=== PATIENT | female | born 1985 | race Caucasian/White ===

== ENCOUNTER 2019-02-05 10:11 | Emergency (ER) | payer OTHER, SELFPAY ==
[2019-02-05 10:18] VITALS: BP 127/85; PULSE 68; RESP 16; TEMP 36.4; O2SAT 98
--- NOTE | 2019-02-05 10:28 | DI.RAD_ITS ---
EXAM: XR SHOULDER LT COMPLETE 2+V INDICATION: mid clavicle pain and swell. COMPARISON: No exams were available for comparison TECHNIQUE: 2D digital imaging was performed. FINDINGS: Three views were obtained. There is a midclavicular fracture. No evidence acute glenohumeral disloc ation or fracture. Apparent prior resection of distal left clavicle noted. IMPRESSION:
--- NOTE | 2019-02-05 10:28 | DI.RAD_ITS ---
EXAM: XR RIBS LT W PA LAT CHEST INDICATION: fall< l shoulder pain, L pain. COMPARISON: No exams were available for comparison TECHNIQUE: 2D digital imaging was performed. FINDINGS: PA and lateral chest and four views of left ribs were obtained. Heart is not enlarged and the lungs are clear. No pneumothorax or pleural effusion. No rib fracture seen. Left clavicular fracture aga in noted. IMPRESSION:
--- NOTE | 2019-02-05 10:28 | DI.RAD_ITS ---
EXAM: XR CERVICAL SP TUTTLE TRAUMA 2-3V INDICATION: L anterior neck pain after fall. COMPARISON: No exams were available for comparison TECHNIQUE: 2D digital imaging was performed. FINDINGS: Five views were obtained. Intervertebral disc spaces appear well maintained. No evidence of acute c ervical spine fracture. IMPRESSION:
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
[2019-02-05] MEDS: Ibuprofen 400 MG TAB 800 MG (10:39)
--- NOTE | 2019-02-05 11:14 | DI.RAD_ITS ---
EXAM: XR CLAVICLE LT INDICATION: pain. COMPARISON: No exams were available for comparison TECHNIQUE: 2D digital imaging was performed. FINDINGS: Two views were obtained and show inferiorly angulated distal fracture fragment with midclavicular fra cture. Question prior resection distal left clavicle. No other acute fracture seen IMPRESSION:
[2019-02-05] MEDS: Acetaminophen 500 MG TAB 1000 MG PO (11:23)
[2019-02-05 12:06] VITALS: BP 120/79; PULSE 67; RESP 14; TEMP 37; O2SAT 100
== END 2019-02-05 12:09 | disposition home or self-care (01) ==
PROVIDERS: Emergency Provider Emergency Medicine; PCP Student in an Organized Health Care Education/Training Program
DX: S42.022A Displaced fracture of shaft of left clavicle, initial encounter for closed fracture (principal); M54.2 Cervicalgia; V17.0XXA Pedal cycle driver injured in collision with fixed or stationary object in nontraffic accident, initial encounter
CPT/HCPCS: 99284; 71046; 71100; 72040; 73000; 73030; 99282; L3650

== ENCOUNTER 2019-02-18 10:13 | Outpatient (CLI) | payer OTHER, SELFPAY ==
--- NOTE | 2019-02-18 09:26 | DI.RAD_ITS ---
EXAM: XR CLAVICLE LT INDICATION: F/U FRACTURE COMPARISON: XR CLAVICLE LT from 02/05/2019 TECHNIQUE: 2D digital imaging was performed. FINDINGS: There has been no change in the alignment of the mid clavicular fracture.
== END 2019-02-18 10:33 ==
PROVIDERS: PCP Student in an Organized Health Care Education/Training Program; Visit Provider Student in an Organized Health Care Education/Training Program
DX: S42.022D Displaced fracture of shaft of left clavicle, subsequent encounter for fracture with routine healing (principal)
CPT/HCPCS: 73000

== ENCOUNTER 2019-03-10 13:37 | Outpatient (CLI) | payer OTHER, SELFPAY ==
--- NOTE | 2019-03-10 13:37 | DI.RAD_ITS ---
EXAM: XR CLAVICLE LT INDICATION: F/U FRACTURE. COMPARISON: XR SHOULDER LT COMPLETE 2+V from 02/05/2019 XR CLAVICLE LT from 02/05/2019 XR CLAVICLE LT from 02/18/2019 TECHNIQUE: 2D digital imaging was performed. FINDINGS: Fracture of the proximal 3rd appears unchanged in alignment given differences in projection. There is widening of the AC joint versus postsurgical resection.
== END 2019-03-10 13:57 ==
PROVIDERS: PCP Student in an Organized Health Care Education/Training Program; Visit Provider Student in an Organized Health Care Education/Training Program
DX: S42.022D Displaced fracture of shaft of left clavicle, subsequent encounter for fracture with routine healing (principal)
CPT/HCPCS: 73000

== ENCOUNTER 2019-03-31 13:36 | Outpatient (CLI) | payer OTHER, SELFPAY ==
--- NOTE | 2019-03-31 13:09 | DI.RAD_ITS ---
EXAM: XR CLAVICLE LT INDICATION: F/U FRACTURE. COMPARISON: No exams were available for comparison TECHNIQUE: 2D digital imaging was performed. FINDINGS: There has been no change in the alignment of the mid clavicle fracture given differences in projectio n.
== END 2019-03-31 13:56 ==
PROVIDERS: PCP Student in an Organized Health Care Education/Training Program; Visit Provider Student in an Organized Health Care Education/Training Program
DX: S42.022D Displaced fracture of shaft of left clavicle, subsequent encounter for fracture with routine healing (principal)
CPT/HCPCS: 73000

== ENCOUNTER 2020-11-15 14:54 | Outpatient (CLI) | payer OTHER, SELFPAY ==
[2020-11-15 14:44] LABS: TSH (W/Ref FT4) 0.09 uIU/mL (0.36-3.74)
[2020-11-16 20:35] LABS: HCG Quant, Pregnancy 1495 mIU/mL (1-3)
== END 2020-11-15 14:55 | disposition home or self-care (01) ==
LOC: LBO 14:54
PROVIDERS: PCP Student in an Organized Health Care Education/Training Program; Visit Provider Obstetrics & Gynecology
DX: E03.9 Hypothyroidism, unspecified (principal); Z32.01 Encounter for pregnancy test, result positive; R53.83 Other fatigue
CPT/HCPCS: 36415; 84439; 84443; 84702

== ENCOUNTER 2020-11-17 03:41 | Outpatient (CLI) | payer OTHER, SELFPAY | END 2020-11-17 03:42 | disposition home or self-care (01) | LOC: LBO 03:41 | PROVIDERS: PCP Student in an Organized Health Care Education/Training Program; Visit Provider Obstetrics & Gynecology | DX: Z34.91 Encounter for supervision of normal pregnancy, unspecified, first trimester (principal) | CPT/HCPCS: 36415; 84702 ==

== ENCOUNTER → 2021-05-18 01:59 | Outpatient (CLI) | payer OTHER, SELFPAY ==
--- NOTE | 2021-05-18 08:30 | DI.MAMMO_ITS ---
Exam(s) US BREAST LT COMPLETE MG MAMMO DIAGNOSTIC BI EXAM: MG MAMMO DIAGNOSTIC BI CLINICAL HISTORY: breast pain, n64.4. COMPARISON: MG Mammo Diagnostic Bilat from 07/01/2017 US RIGHT BREAST ULTRASOUND from 07/01/2017 [id number] TECHNIQUE: Craniocaudal and mediolateral oblique Full Field Digital Mammography views of the both br easts with Computer Aided Diagnosis followed by Tomosynthesis and left breast ultrasound. FINDINGS: Mammography/Tomosynthesis: Masses/Architectural Distortion: None seen. Microcalcifications: No suspicious pleomorphic-type are seen. Skin Thickening/Nipple Retraction: None. Left breast US: Echotexture: Normal appearance of the glandular tissue. Shadowing: No suspicious foci. Cyst: None. Solid lesions: None seen. Ductal dilation: None. IMPRESSION: 1. No evidence of malignancy is noted. 2. Unless there is more urgent need, follow-up screening mammography is recommended, as per [place] [employer] guidelines. BI-RADS Category 1 - Negative Breast Density - Category C - Heterogeneously dense Breast density category C or D implies that the patient has dense breast tissue. Dense breast tissue is very common and is not abnormal but dense breast tissue can make it harder to find cancer on a ma mmogram. Also, dense breast tissue may increase their breast cancer risk. This information about the result of the mammogram report was provided to the patient to raise their awareness. Use this report when you speak with the patient about their risks for breast cancer, which includes their family hist ory. At that time, you may recommend for more screening tests (Ultrasound or MRI) as they might be us eful based on their risk. A negative radiographic report should not delay biopsy if a dominant or clinically suspicious mass is present. Up to ten percent of cancers are not identified on mammography. A negative report may reinforce clinical impression. Adenosis and dense breasts may obscure an underlying neoplasm. False positive reports average 6 to 10%. Patient will receive a letter notifying them of these results.
== END ==
PROVIDERS: PCP Student in an Organized Health Care Education/Training Program; Visit Provider Student in an Organized Health Care Education/Training Program
DX: N64.4 Mastodynia (principal)
CPT/HCPCS: 76642; 77062; 77066; G0279

== ENCOUNTER 2021-12-25 04:04 | Outpatient (CLI) | payer OTHER, SELFPAY ==
[2021-12-25 14:16] LABS: Anion Gap 7.1 mmol/L (3-11); BUN 14 mg/dL (7-18); CO2 30.9 mmol/L (21.0-32.0); CREATININE 0.8 mg/dL (0.55-1.02); Calcium 8.4 mg/dL (8.5-10.1); Chloride 102 mmol/L (98-107); Glucose 87 mg/dL (74-106); Potassium 4.1 mmol/L (3.5-5.1); Sodium 140 mmol/L (136-145); TSH (W/Ref FT4) 0.06 uIU/mL (0.36-3.74)
[2021-12-25 14:34] LABS: FREE T4 1.08 ng/dL (0.76-1.46)
[2021-12-25 14:49] LABS: Calculated LDL 82 mg/dL (<100); Cholesterol 177 mg/dL (<200); HDL Cholesterol 83 mg/dL (40-60); Triglyceride 60 mg/dL (<150)
[2021-12-26 12:23] LABS: Thyroglobulin Antibody <1.8 IU/mL (<1.8); Thyroglobulin Tumor Marker <0.1 ng/mL
== END 2021-12-25 04:05 | disposition home or self-care (01) ==
LOC: LBO 04:04
PROVIDERS: PCP Student in an Organized Health Care Education/Training Program; Visit Provider Internal Medicine Endocrinology, Diabetes & Metabolism
DX: R79.89 Other specified abnormal findings of blood chemistry (principal); Z13.220 Encounter for screening for lipoid disorders; E03.9 Hypothyroidism, unspecified; C73 Malignant neoplasm of thyroid gland
CPT/HCPCS: 36415; 80048; 80061; 84432; 84439; 84443; 86800

== ENCOUNTER → 2022-02-19 00:56 | Outpatient (CLI) | payer MEDICAID, SELFPAY ==
--- NOTE | 2022-02-19 06:30 | DI.US_ITS ---
Exam(s) US SOFT TISSUE HEAD OR NECK EXAM: US SOFT TISSUE HEAD OR NECK CLINICAL HISTORY: re-evaluate enlarged lymph node M54.2 CERVICALGIA R59.0 ENLARGED LYMPH NODE. TECHNIQUE: Ultrasound was performed using standard protocol. COMPARISON: US US SOFT TISSUE HEAD OR NECK from 12/15/2021 FINDINGS: Sonographic assessment utilizing grayscale and color Doppler imaging was performed and targeted to th e area of clinical concern. The patient is status post thyroidectomy. Lymph nodes are again seen in the neck. The largest on th e right measures 1 x 0.8 x 0.2 cm. The largest on the left measures 1.2 x 0.9 x 0.6 cm. Previously the largest lymph node in the left neck measures 1.7 x 0.9 x 1.2 cm. IMPRESSION: The largest lymph node is seen in the left neck and measures 1.2 x 0.9 x 0.6 cm. DATA REPOSITORY:
== END ==
PROVIDERS: PCP Student in an Organized Health Care Education/Training Program; Visit Provider Student in an Organized Health Care Education/Training Program
DX: M54.2 Cervicalgia (principal); R59.0 Localized enlarged lymph nodes
CPT/HCPCS: 76536

== ENCOUNTER 2022-06-01 00:49 | Outpatient (CLI) | payer MEDICAID, SELFPAY ==
--- NOTE | 2022-06-01 06:30 | DI.RAD_ITS ---
Exam(s) XR CERVICAL SPINE COMP 4-5V EXAM: XR CERVICAL SPINE COMP 4-5V CLINICAL HISTORY: evaluate curvature; mm tension;? BONY PATHOL,NECK PAIN,M54.2,H/O HEALED FX,. TECHNIQUE: 2D digital imaging was performed. Six images were obtained. AP, odontoid, lateral and ez ateral oblique images were obtained. COMPARISON: No exams were available for comparison FINDINGS: The odontoid is intact. The lateral masses are well aligned. There is normal alignment of the cervi sonny spine. The vertebral bodies, disc spaces and posterior elements are well maintained. No acute f racture or subluxation is present. No significant neural foraminal stenosis is present. The cervical thoracic junction is well maintained. The prevertebral soft tissues are unremarkable. Lung apices a re clear. IMPRESSION: Unremarkable radiographs of the cervical spine. DATA REPOSITORY: RADIATION DOSE DELIVERED:
== END 2022-06-01 01:09 ==
LOC: DI 00:49
PROVIDERS: PCP Student in an Organized Health Care Education/Training Program; Visit Provider Student in an Organized Health Care Education/Training Program
DX: M54.2 Cervicalgia (principal); Z87.81 Personal history of (healed) traumatic fracture
CPT/HCPCS: 72050

== ENCOUNTER 2022-09-24 01:08 | Outpatient (CLI) | payer MEDICAID, SELFPAY ==
--- NOTE | 2022-09-24 06:30 | DI.US_ITS ---
Exam(s) US THYROID EXAM: US THYROID CLINICAL HISTORY: monitor lymphadenopathy,hypothyroidism,r59.0,e03.9. TECHNIQUE: Ultrasound thyroid performed using standard protocol. COMPARISON: No exams were available for comparison FINDINGS: The patient is status post thyroidectomy. OTHER FINDINGS: There are lymph nodes seen in the neck. The lymph nodes have a benign appearance wit h un ovoid hypoechoic node with an echogenic eccentric hilum. The largest on the right measures 1.4 x 0.6 x 1.1 cm. The largest on the left measures 1.8 x 0.7 x 1.4 cm. IMPRESSION: 1. Status post thyroidectomy. 2. Bilateral lymph nodes. The largest is on the left and measures 1.8 x 0.7 x 1.4 cm. DATA REPOSITORY:
== END 2022-09-24 01:28 ==
LOC: DI 01:08
PROVIDERS: PCP Student in an Organized Health Care Education/Training Program; Visit Provider Student in an Organized Health Care Education/Training Program
DX: E03.9 Hypothyroidism, unspecified (principal); R59.0 Localized enlarged lymph nodes
CPT/HCPCS: 76536

== ENCOUNTER 2022-09-27 12:19 | Outpatient (CLI) | payer MEDICAID, SELFPAY ==
[2022-09-27 10:57] LABS: Lab Add On Test DONE
[2022-09-27 11:07] LABS: Abs Immature Grans 0.02 10^3/uL (0.0-0.06); Absolute Basophil Count 0.03 10^3/uL (0.0-0.2); Absolute Eosinophil Count 0.15 10^3/uL (0.0-0.7); Absolute Lymphocyte Count 1.65 10^3/uL (1.2-3.4); Absolute Neutrophil Count 3.39 10^3/uL (1.2-6.7); Basophils % 0.5; Eosinophils % 2.6; HCT 40.9 % (36.0-46.0); Immature Grans % 0.3; Lymphocytes % 28.7; MCH 32.3 pg (27.0-33.0); MCHC 34.2 % (32.0-36.0); MCV 94 fL (80-95); MPV 9.3 fL (8.0-11.0); Monocytes % 8.7; Neutrophils % 59.2; Platelet Count 252 10^3/uL (130-400); RBC 4.34 10^6/uL (3.93-5.22); RDW 11.8 % (11.7-14.6); RDW-SD 41.1 fL; WBC 5.74 10^3/uL (4.4-10.8)
[2022-09-27 11:35] LABS: Anion Gap 7.1 mmol/L (3-11); BUN 9 mg/dL (7-18); CO2 28.9 mmol/L (21.0-32.0); CREATININE 0.7 mg/dL (0.55-1.02); Calcium 8.6 mg/dL (8.5-10.1); Chloride 102 mmol/L (98-107); Estimated GFR 114.88 (mL/min/1.73m2); Glucose 100 mg/dL (74-106); Potassium 4.3 mmol/L (3.5-5.1); Sodium 138 mmol/L (136-145); TSH (W/Ref FT4) 0.08 uIU/mL (0.36-3.74)
[2022-09-27 11:58] LABS: FREE T4 1.15 ng/dL (0.76-1.46)
[2022-09-27 19:29] LABS: T3,Free 3.7 pg/mL (2.8-5.3)
[2022-09-27 20:42] LABS: Thyroglobulin Antibody <15 U/mL (<=60)
[2022-09-28 16:41] LABS: Thyroglobulin Antibody <1.8 IU/mL (<1.8); Thyroglobulin Tumor Marker <0.1 ng/mL
[2022-10-01 15:57] LABS: Albumin 4.7 g/dL (3.4-5.0); Magnesium 2.3 mg/dL (1.8-2.4)
== END 2022-09-27 12:20 | disposition home or self-care (01) ==
LOC: LBO 12:20
PROVIDERS: PCP Student in an Organized Health Care Education/Training Program; Visit Provider Student in an Organized Health Care Education/Training Program
DX: K12.2 Cellulitis and abscess of mouth (principal); R59.1 Generalized enlarged lymph nodes; Z85.850 Personal history of malignant neoplasm of thyroid
CPT/HCPCS: 36415; 80048; 82040; 83735; 84432; 84439; 84443; 84481; 85025; 86800

== ENCOUNTER 2023-01-01 11:49 | Outpatient (REF) | payer MEDICAID, SELFPAY ==
--- NOTE | 2023-01-01 11:15 | PAPFT_PTH ---
PATIENT: Marlyn Bradley LOC: [facility] U#:[id number] AGE/SX: 37/F ROOM: RE01/01/[address]: Diana Jones CNM : 1985 BED: DIS: 01/01/2023 SPEC #: [id number] RECD: 01/01/23 18:27 STATUS: ERYN REQ #: [id number] TREY: 01/01/23 11:[address]: Diana Jones DEPT: [facility] Cytology RECD BY: Maria Esther Streeter ENTERED: 01/01/23 18:27 SP TYPE: PAPFT OTHR DR: Batsheva Mederos DO Tissues: 1 - CX/ENDOCX FOR PAP SMEARS Procedures: PAP THIN PREP/[facility] Screening Comments: [id number]
== END 2023-01-01 11:50 | disposition home or self-care (01) ==
LOC: LBN 11:49
PROVIDERS: PCP Student in an Organized Health Care Education/Training Program; Visit Provider Advanced Practice Midwife
DX: Z12.4 Encounter for screening for malignant neoplasm of cervix (principal)
CPT/HCPCS: 88142

== ENCOUNTER 2023-01-01 14:41 | Outpatient (CLI) | payer MEDICAID, SELFPAY ==
[2023-01-01 12:12] LABS: HCG Quant, Pregnancy 63 mIU/mL (1-3); TSH 0.09 uIU/mL (0.36-3.74)
[2023-01-01 12:32] LABS: FREE T4 1.02 ng/dL (0.76-1.46)
== END 2023-01-01 14:42 | disposition home or self-care (01) ==
LOC: LBO 14:42
PROVIDERS: PCP Student in an Organized Health Care Education/Training Program; Visit Provider Advanced Practice Midwife
DX: O03.9 Complete or unspecified spontaneous abortion without complication (principal); E03.8 Other specified hypothyroidism
CPT/HCPCS: 36415; 84439; 84443; 84702

== ENCOUNTER 2023-01-08 02:31 | Outpatient (CLI) | payer MEDICAID, SELFPAY ==
[2023-01-08 14:40] LABS: HCG Quant, Pregnancy 4 mIU/mL (1-3)
== END 2023-01-08 02:32 | disposition home or self-care (01) ==
LOC: LBO 02:31
PROVIDERS: Advanced Practice Midwife; PCP Student in an Organized Health Care Education/Training Program; Visit Provider Student in an Organized Health Care Education/Training Program
DX: O03.9 Complete or unspecified spontaneous abortion without complication (principal)
CPT/HCPCS: 36415; 84702

== ENCOUNTER 2023-02-12 03:18 | Outpatient (CLI) | payer MEDICAID, SELFPAY ==
[2023-02-12 13:49] LABS: FREE T4 1.11 ng/dL (0.76-1.46)
== END 2023-02-12 03:19 | disposition home or self-care (01) ==
PROVIDERS: PCP Student in an Organized Health Care Education/Training Program; Visit Provider Internal Medicine Endocrinology, Diabetes & Metabolism
DX: E03.9 Hypothyroidism, unspecified (principal)
CPT/HCPCS: 36415; 84439; 84443

== ENCOUNTER 2023-10-10 05:20 | Outpatient (CLI) | payer MEDICAID, SELFPAY ==
[2023-10-10 16:13] LABS: Abs Immature Grans 0.02 10^3/uL (0.0-0.06); Absolute Basophil Count 0.04 10^3/uL (0.0-0.2); Absolute Eosinophil Count 0.31 10^3/uL (0.0-0.7); Absolute Monocyte Count 0.49 10^3/uL (0.1-0.8); Absolute Neutrophil Count 2.64 10^3/uL (1.2-6.7); Basophils % 0.7 %; Eosinophils % 5.4 %; HCT 37.4 % (36.0-46.0); HGB 12.9 g/dL (11.2-15.7); Immature Grans % 0.4 %; Lymphocytes % 38.6 %; MCH 32.5 pg (27.0-33.0); MCHC 34.5 % (32.0-36.0); MCV 94 fL (80-95); MPV 9.7 fL (8.0-11.0); Monocytes % 8.6 %; Neutrophils % 46.3 %; Platelet Count 229 10^3/uL (130-400); RBC 3.97 10^6/uL (3.93-5.22); RDW 11.7 % (11.7-14.6)
== END 2023-10-10 05:21 | disposition home or self-care (01) ==
LOC: LBO 05:20
PROVIDERS: PCP Student in an Organized Health Care Education/Training Program; Visit Provider Student in an Organized Health Care Education/Training Program
DX: R53.83 Other fatigue (principal)
CPT/HCPCS: 36415; 85025

== ENCOUNTER → 2023-10-17 00:14 | Outpatient (CLI) | payer MEDICAID, SELFPAY ==
--- NOTE | 2023-10-17 12:00 | DI.US_ITS ---
Exam(s) US SOFT TISSUE HEAD OR NECK EXAM: US SOFT TISSUE HEAD OR NECK CLINICAL HISTORY: r/o acute finding, hypothyroidism, globus sensation, hx thyroid ca, R09.A2,. TECHNIQUE: Ultrasound was performed using standard protocol. COMPARISON: US US SOFT TISSUE HEAD OR NECK from 02/19/2022 FINDINGS: Sonographic assessment utilizing grayscale and color Doppler imaging was performed and targeted to th e area of clinical concern. There is sonographically normal appearing lymph nodes in the neck bilaterally. The lymph nodes are h ypoechoic with a hyperechoic eccentric vascular component. The largest on the right measures 1 x 0.2 x 0.7 cm. The largest on the left measures 0.9 x 0.4 x 0.7 cm. No suspicious cystic or solid ángel s are seen in the neck. IMPRESSION: No suspicious cystic or solid masses are seen in the neck. DATA REPOSITORY:
--- NOTE | 2023-10-17 12:28 | DI.RAD_ITS ---
Exam(s) XR CHEST 2V PA LATERAL EXAM: XR CHEST 2V PA LATERAL CLINICAL HISTORY: evaluate for occult pneumonia, infiltrate,cough, r05.9 TECHNIQUE: 2D digital imaging was performed of the chest. Two images were obtained. PA and lateral views were obtained. COMPARISON: CR XR RIBS LT W PA LAT CHEST from 02/05/2019 FINDINGS: MEDIASTINUM: Normal. HEART: Normal. PULMONARY VASCULATURE: Normal. LUNGS: Clear. PLEURAL SPACE: No pleural effusion or pneumothorax. BONE:Within normal limits for the patient's age. OTHER FINDINGS:Normal. IMPRESSION: No acute pulmonary findings. DATA REPOSITORY: RADIATION DOSE DELIVERED:
== END ==
PROVIDERS: PCP Student in an Organized Health Care Education/Training Program; Visit Provider Student in an Organized Health Care Education/Training Program
DX: R09.A2 Foreign body sensation, throat (principal); Z85.850 Personal history of malignant neoplasm of thyroid
CPT/HCPCS: 76536; 71046

== ENCOUNTER 2024-07-21 15:48 | Outpatient (CLI) | payer MEDICAID, SELFPAY ==
[2024-07-21 15:30] LABS: TSH 0.81 uIU/mL (0.36-3.74)
[2024-07-21 21:48] LABS: T4, Free 1.1 ng/dL (0.8-2.2)
== END 2024-07-21 15:49 | disposition home or self-care (01) ==
LOC: LBO 15:51
PROVIDERS: PCP Student in an Organized Health Care Education/Training Program; Visit Provider Advanced Practice Midwife
DX: Z34.93 Encounter for supervision of normal pregnancy, unspecified, third trimester (principal)
CPT/HCPCS: 36415; 84439; 84443

== ENCOUNTER 2024-08-05 00:54 | Outpatient (CLI) | payer MEDICAID, SELFPAY ==
--- NOTE | 2024-08-05 06:45 | DI.US_ITS ---
Exam(s) US OB DANIEL WEIGHT EXAM: US OB DANIEL WEIGHT CLINICAL HISTORY: EFW/DANIEL due to thyroidectomy,z98.890,z90.89. TECHNIQUE: Transabdominal obstetrical ultrasound performed. COMPARISON: No exams were available for comparison FINDINGS: Number of fetuses: 1 position: CEPHALIC Placental location: There is a grade 2 anterior placenta. No evidence of previa. BIOMETRIC DATA: BPD: 7.78cm, 31weeks 2days HC: 29.19cm, 32weeks 1day AC: 29.3cm, 33weeks 2days FL: 6.28cm, 32weeks 4days EFW: 2,042.93g, 4lb 8.47oz, 59.5% Composite Age: 32weeks 2days JOSEY: 09/28/2024 Heart Rate: 148bpm Amniotic fluid index: 11.76cm. The largest pocket measures 7.1 cm. IMPRESSION: 1. Single live intrauterine gestation as above. 2. Estimated weight is 2043gms. This is the 60th percentile. 3. Amniotic fluid index is 11.8 cm. The largest pocket measures 7.1 cm. DATA REPOSITORY:
== END 2024-08-05 01:14 ==
LOC: DI 00:54
PROVIDERS: PCP Student in an Organized Health Care Education/Training Program; Visit Provider Advanced Practice Midwife
DX: Z98.890 Other specified postprocedural states (principal); Z90.89 Acquired absence of other organs
CPT/HCPCS: 76816

== ENCOUNTER 2024-08-31 11:09 | Outpatient (REF) | payer MEDICAID, SELFPAY | END 2024-08-31 11:10 | disposition home or self-care (01) | LOC: LBN 11:09 | PROVIDERS: PCP Student in an Organized Health Care Education/Training Program; Visit Provider Advanced Practice Midwife | DX: Z34.93 Encounter for supervision of normal pregnancy, unspecified, third trimester (principal) | CPT/HCPCS: 87081 ==

== ENCOUNTER 2024-09-26 15:48 | Outpatient (CLI) | payer MEDICAID, SELFPAY ==
[2024-09-26 16:13] VITALS: BP 99/67; PULSE 62
[2024-09-26 16:38] LABS: ROM Plus Positive
[2024-09-26 16:49] VITALS: BP 99/67; PULSE 62; TEMP 36.9
--- NOTE | 2024-09-26 17:54 | PDOC.NST_ITS ---
Date of service: 09/26/24 Time of Service: 17:54 NST Evaluation Reason for NST Reasons for Nonstress Test: OTHER, SEE COMMENT Reason for NST Other: rule out labor Gestational Age Gestational Age in Weeks and Days: 39 Weeks and 4Days Test and Monitor Explained Test/Monitor Explained: Test Explained, Monitor Explained and Patient Verbalized Understanding Vital Signs Blood Pressure: 99/67 Pulse: 62 Temperature: 98.4 F NST Information Date on Monitor: 09/26/24 Time on Monitor: 16:13 Date off Monitor: 09/26/24 Time off Monitor: 17:23 Total Time on Monitor: 70 NST Interventions: PO Hydration Contraction Frequency: 3-8 NST Evaluation Patient States Movement: Present FHR Baseline: 125 Variability: Moderate 6-25 bpm Accelerations: 15x15 Decelerations: None NST Results: Reactive Note Ultrasound Done: N/A. NST Note Note: Elsa reported that she has been experiencing watery discharge fo 3 days which did not require wearing a pad and her clothing was not wet. She denies i ntercourse or spotting. She was having mild cramping. Neg pooling noted and ROM plus pos. Sterile speculum exam. and cervical os visualized. It is 1/2 cm dilated with membranes visible. Neg pool with cough and neg nitrazine. Neg ferning. ROM plus is believed to be false pos. at this time. She was encouraged to wear a pad and monitor fluid leaking and come in if it recurs. Vaginal pathogen screen taken. NST Reviewed and Verified by: Diana Chavez
[2024-09-26 17:57] VITALS: BP 99/67; PULSE 62; TEMP 36.9
== END 2024-09-26 17:40 ==
LOC: BCD 15:49 → OBS 16:06
PROVIDERS: PCP Student in an Organized Health Care Education/Training Program; Visit Provider Advanced Practice Midwife
DX: O47.1 False labor at or after 37 completed weeks of gestation (principal); Z3A.39 39 weeks gestation of pregnancy
CPT/HCPCS: 84112; 59025; 87480; 87510; 87660

== ENCOUNTER 2024-09-29 07:18 | Outpatient (CLI) | payer MEDICAID, SELFPAY ==
[2024-09-29 08:57] VITALS: BP 114/68; PULSE 67; TEMP 36.7
[2024-09-29 09:12] VITALS: BP 114/68; PULSE 67
--- NOTE | 2024-09-29 11:11 | W.OBNST ---
Date of service: 09/29/24 Time of Service: 11:11 NST Evaluation Reason for NST Reasons for Nonstress Test: ADVANCED MATERNAL AGE Gestational Age Gestational Age in Weeks and Days: 40 Weeks and 0Days Test and Monitor Explained Test/Monitor Explained: Test Explained, Monitor Explained and Patient Verbalized Understanding Vital Signs Blood Pressure: 114/68 Pulse: 67 Temperature: 98.1 F Urine Results Urine Protein: Negative Urine Ketones: Negative Urine Glucose: Negative Urine Blood: Negative NST Information Date on Monitor: 09/29/24 Time on Monitor: 09:05 Date off Monitor: 09/29/24 Time off Monitor: 09: Total Time on Monitor: 18 NST Interventions: PO Hydration NST Evaluation Patient States Movement: Present FHR Baseline: 135 Variability: Moderate 6-25 bpm Accelerations: 15x15 Decelerations: None NST Results: Reactive Note Ultrasound Done: N/A. NST Note Note: cvx ft/50%, posterior and firm, cephalic presentation -4, intact membranes SSE for likely vanessa vaginitis, Rx for clotrimazole vag cream sent Pt to return in 3 days for repeat NST and cvx exam IOL discussed, indications, risks and benefits reviewed in detail, pt declines today. NST Reviewed and Verified by: Yvette Mejia
[2024-09-29 11:13] VITALS: BP 114/68; PULSE 67; TEMP 36.7
== END 2024-09-29 09:45 | disposition other institution (70) ==
LOC: BCD 07:26 → OBS 08:55
PROVIDERS: PCP Student in an Organized Health Care Education/Training Program; Visit Provider Advanced Practice Midwife
DX: Z3A.40 40 weeks gestation of pregnancy (principal); O09.523 Supervision of elderly multigravida, third trimester
CPT/HCPCS: 59025

== ENCOUNTER 2024-10-01 11:08 | Inpatient (IN) | payer MEDICAID, SELFPAY ==
[2024-10-01] VITALS (100 sets, daily range): BP systolic 89–122; BP diastolic 55–80; PULSE 0–200; RESP 16; TEMP 36.5–36.9; O2SAT 92–100; BMI 26.9
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
[2024-10-01 11:45] LABS: HGB 12.8 g/dL (11.2-15.7); MCH 32.7 pg (27.0-33.0); MCHC 33.7 % (32.0-36.0); MCV 97 fL (80-95); MPV 10.2 fL (8.0-11.0); Platelet Count 192 10^3/uL (130-400); RBC 3.92 10^6/uL (3.93-5.22); RDW 12.3 % (11.7-14.6); RDW-SD 43.5 fL; WBC 8.35 10^3/uL (4.4-10.8)
[2024-10-01] MEDS: Lactated Ringers 1,000 ML 125 ML IV ×2 (14:01→21:09)
[2024-10-01] MEDS: Oxytocin/Normal Saline 30 UNIT/500 ML BAG 2 UNITS IV (14:02)
--- NOTE | 2024-10-01 17:38 | W.PM.OBNL1 ---
Date of service: 10/01/24 Time of Service: 17:38 Informed Consent Informed Consent: Induction of Labor and Risk,Benefits,Alternatives Discussed Pelvic Exam Dilation: 2 Effacement (%): 100 station: -1 Cervix Position: mid Consistency: soft Vaginal Exam Presentation: Cephalic Contractions Monitor Mode: External Contraction Frequency(min): every 2-3 Contraction Duration(sec): 60-120 Intensity: Strong Fetus A Monitor: External (US) Heart Rate Baseline: 135 Variability: Moderate (6-25 BPM) Categories: Category I FHR Rhythm: Regular Accelerations: 15 X 15 Assessment and Plan Assessment and plan (1) PROM (premature rupture of membranes): Status: Acute Assessment and plan: Continue to assess labor progress and maternal and status. (2) Encounter for induction of labor: Status: Acute Assessment and plan: Continued comfort measures and anticipate . Dr chatman is aware of her progress in labor. Objective Abnormal lab results 10/01/24 Range/Units 11:32 RBC 3.92 L (3.93-5.22) 10^6/uL MCV 97 H (80-95) fL Temp Pulse Resp BP Pulse Ox 97.9 F 74 16 107/73 100 10/01/24 14:41 10/01/24 15:01 10/01/24 11:46 10/01/24 15:01 10/01/24 11:48 Laboratory Results WBC 8.35 10^3/uL (4.4-10.8) 10/01/24 11:32 RBC 3.92 10^6/uL (3.93-5.22) L 10/01/24 11:32 Hgb 12.8 g/dL (11.2-15.7) 10/01/24 11:32 Hct 38.0 % (36.0-46.0) 10/01/24 11:32 MCV 97 fL (80-95) H 10/01/24 11:32 MCH 32.7 pg (27.0-33.0) 10/01/24 11:32 MCHC 33.7 % (32.0-36.0) 10/01/24 11:32 RDW 12.3 % (11.7-14.6) 10/01/24 11:32 Plt Count 192 10^3/uL (130-400) 10/01/24 11:32 MPV 10.2 fL (8.0-11.0) 10/01/24 11:32 ABO/Rh O Positive 10/01/24 11:32 Antibody Screen NEGATIVE 10/01/24 11:32 Vital Signs Reviewed: Yes Subjective Patient Reports: New Complaints Interval history since last seen: Elsa reports stronger contractions. She has been using various positions for comfort. She requested nitrous oxide for pain relief. Pitocin was at 2 mu/min but was decreased to 1 mu/min by RN due to frequent strong contractions. Results Hemoglobin/Hematocrit: Hgb 12.8 g/dL (11.2-15.7) 10/01/24 11:32 Hct 38.0 % (36.0-46.0) 10/01/24 11:32 Abnormal Lab Findings: Abnormal Labs 10/01/24 11:32 RBC 3.92 L MCV 97 H
[2024-10-01] MEDS: Lactated Ringers 500 ML IV (20:08)
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
[2024-10-01] MEDS: FentaNYL/ROPIvacaine 2 mcg/ml and 0.1% 200 ML CADD Cassette EP (20:55)
--- NOTE | 2024-10-01 21:03 | W.PM.OBNL1 ---
Date of service: 10/01/24 Time of Service: 21:03 Informed Consent Informed Consent: Induction of Labor and Risk,Benefits,Alternatives Discussed Pelvic Exam Dilation: 4 Effacement (%): 100 station: 0 Cervix Position: mid Consistency: soft Comments: AROM of a forebag of membranes at 1745 for light yellow tinged fluid. Contractions Monitor Mode: External Contraction Frequency(min): every 2-3 Contraction Duration(sec): 60 Intensity: Strong Fetus A Monitor: External (US) Heart Rate Baseline: 140 Variability: Moderate (6-25 BPM) Categories: Category I FHR Rhythm: Regular Accelerations: 15 X 15 Decelerations: None Assessment and Plan Assessment and plan (1) Encounter for induction of labor: Status: Acute Assessment and plan: Rest encouraged with epidural in place. Will examine in 2-3 hours or when appropriate. Anticipate . Objective Abnormal lab results 10/01/24 Range/Units 11:32 RBC 3.92 L (3.93-5.22) 10^6/uL MCV 97 H (80-95) fL Temp Pulse Resp BP Pulse Ox 98.2 F 90 16 100/66 100 10/01/24 19:39 10/01/24 21:02 10/01/24 19:39 10/01/24 21:02 10/01/24 21:00 Laboratory Results WBC 8.35 10^3/uL (4.4-10.8) 10/01/24 11:32 RBC 3.92 10^6/uL (3.93-5.22) L 10/01/24 11:32 Hgb 12.8 g/dL (11.2-15.7) 10/01/24 11:32 Hct 38.0 % (36.0-46.0) 10/01/24 11:32 MCV 97 fL (80-95) H 10/01/24 11:32 MCH 32.7 pg (27.0-33.0) 10/01/24 11:32 MCHC 33.7 % (32.0-36.0) 10/01/24 11:32 RDW 12.3 % (11.7-14.6) 10/01/24 11:32 Plt Count 192 10^3/uL (130-400) 10/01/24 11:32 MPV 10.2 fL (8.0-11.0) 10/01/24 11:32 ABO/Rh O Positive 10/01/24 11:32 Antibody Screen NEGATIVE 10/01/24 11:32 Vital Signs Reviewed: Yes Subjective Patient Reports: New Complaints Interval history since last seen: Elsa complained of fatigue and weakness. She has been in the shower and many positions for comfort and is tired. She requested an epidural and this was provided by Wolf Salvador CRNA. Results Hemoglobin/Hematocrit: Hgb 12.8 g/dL (11.2-15.7) 10/01/24 11:32 Hct 38.0 % (36.0-46.0) 10/01/24 11:32 Abnormal Lab Findings: Abnormal Labs 10/01/24 11:32 RBC 3.92 L MCV 97 H
--- NOTE | 2024-10-01 21:08 | ANES.NEUR_ITS ---
Epidural/Spinal Catheter Date Performed: 10/01/24 Procedure Start: 08:48 Procedure Stop: 08:58 Requesting Provider: Diana Chavez Procedure Location: Obstetrics Reason Performed: Labor Epidural Standard Monitors Applied: Blood Pressure, SpO2 and See EMR for corresponding vital signs Patient Position: Sitting Sedation Given (Indicate Dose Given): No Sedation given Patient Mental Status: Awake Sterility: Hand Hygiene, Surgical Cap, Surgical Mask, Sterile Gloves, Sterile Drape/Sheet and Chlorhexidine Procedure Location: L3-L4 Interspace Epidural Needle: Tuohy 17 Guage Needle Length: 3.5 Inch Needle Approach: Midline Epidural Procedure: Skin Prepped, Sterile Drape Placed, 1% Lidocaine to skin and subcutaneous tissue with 25G needle, Tuohy Needle placed, NABOR to Air Used, NABOR to Saline Used, Epidural Catheter Placed, Negative Heme, Negative CSF Flow and Tuohy Needle Removed Catheter Placed?: Catheter Placed Test Dose (Indicate Dose Given): 5ml 1.5% Lidocaine with 1:200K Epinephrine Given and Negative Test Dose Loss of Resistance Depth (cm): 6 Catheter depth at skin (cm): 12 Dressing: [place]orbav[place] Dressing Placed, Mastisol Used and Dressing reinforced with Tape Epidural Provider Bolus (Indicate Dose Given): Total bolus dose given in 3-5 ml divided doses and Total Ropivacaine 0.1% with Fentanyl 2mcg/ml Given from pump. (ml) Dose:: 5 ml Additives (Indicate Dose Given ): None Infusion Medication: Medication Infusion Began Medication Infusion: Ropivacaine 0.1% with Fentanyl 2mcg/ml Maintenance Infusion Rate (ml/hour): 10 PCEA Bolus Dose (ml): 5 Block L evel: N/A Paresthesia: Left Paresthesia Duration: Transient Ultrasound: Not Used Number of Attempts (See previous attempts in note section): 1 Procedure Tolerated: No Complications and Patient tolerated well Procedure Outcome: Successful Performed By: Wolf Salvador Other (not listed above): CHU Cordova
[2024-10-02] VITALS (121 sets, daily range): BP systolic 93–186; BP diastolic 55–125; PULSE 0–120; RESP 16; TEMP 36.4–37.5; O2SAT 98–100
--- NOTE | 2024-10-02 05:01 | PGE_ITS ---
Date of service: 10/02/24 Time of Service: 00:30 Informed Consent Informed Consent: Induction of Labor and Risk,Benefits,Alternatives Discussed Pelvic Exam Dilation: 6 Effacement (%): 100 station: 0 Position: VIVIENNE Cervix Position: mid Consistency: soft (edematous) Vaginal Exam Presentation: Cephalic Contractions Monitor Mode: External Contraction Frequency(min): every 3-4 Contraction Duration(sec): 60-90 Intensity: Strong Fetus A Monitor: External (US) Heart Rate Baseline: 140 Variability: Moderate (6-25 BPM) Categories: Category I FHR Rhythm: Regular Accelerations: 15 X 15 Decelerations: None Amniotic Membrane Status: Ruptured Amniotic Fluid: Clear Assessment and Plan Assessment and plan (1) Encounter for induction of labor: Status: Acute Assessment and plan: 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 Reassess when appropriate Objective Abnormal lab results 10/01/24 Range/Units 11:32 RBC 3.92 L (3.93-5.22) 10^6/uL MCV 97 H (80-95) fL Temp Pulse Resp BP Pulse Ox 98.4 F 67 16 115/75 92 10/01/24 23:46 10/02/24 05:00 10/01/24 23:55 10/02/24 04:46 10/01/24 23:59 Laboratory Results WBC 8.35 10^3/uL (4.4-10.8) 10/01/24 11:32 RBC 3.92 10^6/uL (3.93-5.22) L 10/01/24 11:32 Hgb 12.8 g/dL (11.2-15.7) 10/01/24 11:32 Hct 38.0 % (36.0-46.0) 10/01/24 11:32 MCV 97 fL (80-95) H 10/01/24 11:32 MCH 32.7 pg (27.0-33.0) 10/01/24 11:32 MCHC 33.7 % (32.0-36.0) 10/01/24 11:32 RDW 12.3 % (11.7-14.6) 10/01/24 11:32 Plt Count 192 10^3/uL (130-400) 10/01/24 11:32 MPV 10.2 fL (8.0-11.0) 10/01/24 11:32 ABO/Rh O Positive 10/01/24 11:32 Antibody Screen NEGATIVE 10/01/24 11:32 Vital Signs Reviewed: Yes Objective Narrative Objective Narrative: afebrile Subjective Patient Reports: No new Complaints Interval history since last seen: Elsa is resting comfortably but reports she has not slept. Straight cathed for 350 cc clear urine. Pitocin at 4 mu/min Results Hemoglobin/Hematocrit: Hgb 12.8 g/dL (11.2-15.7) 10/01/24 11:32 Hct 38.0 % (36.0-46.0) 10/01/24 11:32 Abnormal Lab Findings: Abnormal Labs 10/01/24 11:32 RBC 3.92 L MCV 97 H
--- NOTE | 2024-10-02 05:05 | W.PM.OBNL1 ---
Date of service: 10/02/24 Time of Service: 05:06 Informed Consent Informed Consent: Induction of Labor and Risk,Benefits,Alternatives Discussed Pelvic Exam Dilation: 10 station: 0 Cervix Position: mid Vaginal Exam Presentation: Cephalic Contractions Monitor Mode: External Contraction Frequency(min): every 2.5-3 Contraction Duration(sec): 60 Intensity: Strong Fetus A Monitor: External (US) Heart Rate Baseline: 140 Variability: Moderate (6-25 BPM) Categories: Category I FHR Rhythm: Regular Accelerations: 15 X 15 Decelerations: Variable Recurrence: Intermittent Assessment and Plan Assessment and plan (1) Encounter for induction of labor: Status: Acute Assessment and plan: Assist with pushing and anticipate , Objective Abnormal lab results 10/01/24 Range/Units 11:32 RBC 3.92 L (3.93-5.22) 10^6/uL MCV 97 H (80-95) fL Temp Pulse Resp BP Pulse Ox 98.4 F 75 16 115/75 92 10/01/24 23:46 10/02/24 05:04 10/01/24 23:55 10/02/24 04:46 10/01/24 23:59 Laboratory Results WBC 8.35 10^3/uL (4.4-10.8) 10/01/24 11:32 RBC 3.92 10^6/uL (3.93-5.22) L 10/01/24 11:32 Hgb 12.8 g/dL (11.2-15.7) 10/01/24 11:32 Hct 38.0 % (36.0-46.0) 10/01/24 11:32 MCV 97 fL (80-95) H 10/01/24 11:32 MCH 32.7 pg (27.0-33.0) 10/01/24 11:32 MCHC 33.7 % (32.0-36.0) 10/01/24 11:32 RDW 12.3 % (11.7-14.6) 10/01/24 11:32 Plt Count 192 10^3/uL (130-400) 10/01/24 11:32 MPV 10.2 fL (8.0-11.0) 10/01/24 11:32 ABO/Rh O Positive 10/01/24 11:32 Antibody Screen NEGATIVE 10/01/24 11:32 Subjective Patient Reports: New Complaints Interval history since last seen: Elsa was experiencing upper abdomibal pain. Results Hemoglobin/Hematocrit: Hgb 12.8 g/dL (11.2-15.7) 10/01/24 11:32 Hct 38.0 % (36.0-46.0) 10/01/24 11:32 Abnormal Lab Findings: Abnormal Labs 10/01/24 11:32 RBC 3.92 L MCV 97 H
--- NOTE | 2024-10-02 07:00 | PLAC_PTH ---
PATIENT: Marlyn Bradley LOC: OBS U#:[id number] AGE/SX: 39/F ROOM: OBS.303 RE10/01/[address]: Yvette Mejia CNM : 1985 BED: A DIS: 10/04/2024 SPEC #: [id number] RECD: 10/05/24 12:44 STATUS: SOUGiovanny REQ #: [id number] TREY: 10/02/24 07:[address]: Yvette Mejia DEPT: Surgical Specimen RECD BY: Maria Etsher Streeter ENTERED: 10/05/24 12:45 SP TYPE: PLAC OTHR DR: Batsheva Mederos, DO Tissues: 1 - PLACENTA (3RD TRIMESTER) Procedures: GROSS AND MICRO LEVEL 5 Comments: [id number]
[2024-10-02] MEDS: Levothyroxine 125 MCG TAB PO (07:39)
--- NOTE | 2024-10-02 10:24 | W.OBDELIVERY ---
Date of service: 10/02/24 Time of Service: 10:24 OB Labor/ Delivery Information Baby A Delivery Delivery Method: Spontaneaous Presentation: Cephalic Vertex Position: Left Occipital Anterior Cord Description-Baby A: 3 Vessels Cord Description Comment: short cord Amniotic Fluid: Meconium (light) Estimated Blood Loss: 400 Delivery Outcome: Liveborn Complications: decreased respiratory effort and crying at . see resuscitation record Infant Transferred: Nursery Note: FHTs 140s during first stage of labor with occasional variable decelerations. FHTs 130s in second stage. She progressed to full dilation and began pushing. Second stage huddle was done. Spontaneous delivery of male infant delivered in VIVIENNE position. Baby was placed on mother's abdomen and dried and stimulated. Normal heart rate at but decreased tone and no spontaneous cry. Cord was clamped and cut by the baby's father and the baby was transferred at one minute of age to the warmer for further assessment. Dr. waddell was paged when the baby was 2 minutes of age to come to the delivery room. The placenta delivered spontaneously and appears to by intact with a three vessel cord. Pitocin 30 units was administered before delivery of the placenta. She had a gush of bright blood after the placenta was delivered and misoprostol 600 mcg PO was administered. The perineum was inspected and a vaginal abrasion was repaired with two interrupted 3-0 vicryl sutures. A right upper labial laceration was also repaired with interrupted 4-0 vicryl sutures. The baby did breastfeed. After delivery, Mother was stable in the delivery room and there were no complications. baby was transferred to the nursery at approximately 50 minutes after for further assessment. He was accompanied by his father. Providers Nurse Polymerization Kettle Operator: Diana Chavez Nurse: Elvira Arreola Nurse: Génesis Ramos Labor/Delivery Information Number of Babies in Womb: 1 Steroids Given: None Reason Steroids Not Administered: N/A Group Beta Strep: Negative Antibiotics Administered: No Rubella Status: Nonimmune Blood Type: O+ Varicella Immunity: Not Tested Medication in Delivery: pitocin IV ran 999ml/hr, miso 600 at 0620 second bag of pit run IV 95ml/hr Shoulder Dystocia: No Stages of Labor Onset of Labor Date: 10/01/24 Onset of Labor Time: 03:00 Complete Dilatation Date: 10/02/24 ROM Baby A: 10/01/24 ROM Baby A: 03:00 Infant Delivery Date-Baby A: 10/02/24 Infant Delivery Time-Baby A: 06:00 Placenta Delivery Date-Baby A: 10/02/24 Placenta Delivery Time-Baby A: 06:08 Labor-Stage 3 Duration: 8 minutes Total Length of Labor-Baby A: 27 hours and 0 minutes Placenta Status: Delivered Baby A Infant Gender: Male Gestational Status: Term (39-41.6 wks) Gestational Age in Weeks/Days: 40 Weeks and 3 Days Interventions Repair of Laceration Type: Perineal and Other (upper right labial), Laceration Extension: N/A. Sponge Count Correct: No Sponges Placed in Vagina, Sharp Count Correct: Yes. Laceration Repair Note: The perineum was inspected and a vaginal abrasion was repaired with two interrupted 3-0 vicryl sutures. a right upper labial laceration was also repaired with interrupted 4-0 vicryl sutures. a right external labial abrasion was not bleeding and was not sutures.
[2024-10-02] MEDS: Dibucaine 1% 28 GM TUBE TP (10:58)
[2024-10-02] MEDS: Ibuprofen 600 MG TAB PO ×2 (10:58→18:40)
[2024-10-02] MEDS: Normal Saline Flush 10 ML SYR IVP (10:59)
[2024-10-02] MEDS: Hamamelis Leaf/Glycerin 100 EACH BOX PR (10:59)
[2024-10-02] MEDS: Docusate Sodium 100 MG CAP PO ×2 (11:15→22:38)
--- NOTE | 2024-10-02 17:16 | W.ANESPOSTOP ---
Postoperative Evaluation Date, Time and Location Date Performed: 10/02/24 Time Performed: 17:16 Patient Location: Obstetrics Vital Signs Most Recent Imported Vital Signs: Most Recent Vital Signs Temp Pulse Resp BP Pulse Ox 36.7 C 93 H 16 114/72 100 10/02/24 09:00 10/02/24 10:00 10/02/24 07:16 10/02/24 10:00 10/02/24 07:39 Pain Score Most Recent Pain Score: Most Recent Pain Score Pain Level 6 10/02/24 10:58 Assessment Mental Status: Awake (Alert & Oriented to Patient Baseline) Airway and Respiratory Function: Patent airway with normal (patient baseline) respiratory exam Cardiovascular Function: Hemodynamically Stable Hydration Status: Adequately Hydrated Nausea & Vomiting: No Nausea or Vomiting Pain: Pain is tolerable per patient Peripheral Nerve Block: Patient did not receive a nerve block
[2024-10-02] MEDS: Acetaminophen 325 MG TAB 650 MG PO (22:38)
[2024-10-03] MEDS: Ibuprofen 600 MG TAB PO (03:18)
[2024-10-03] MEDS: Acetaminophen 325 MG TAB 650 MG PO (06:03)
[2024-10-03 06:50] LABS: HCT 30.2 % (36.0-46.0); HGB 10.5 g/dL (11.2-15.7); MCH 33.4 pg (27.0-33.0); MCHC 34.8 % (32.0-36.0); MCV 96 fL (80-95); Platelet Count 164 10^3/uL (130-400); RBC 3.14 10^6/uL (3.93-5.22); RDW 12.6 % (11.7-14.6); RDW-SD 43.6 fL; WBC 9.58 10^3/uL (4.4-10.8)
[2024-10-03 08:30] VITALS: BP 99/69; PULSE 59; RESP 12; TEMP 36.7
[2024-10-03] MEDS: Measles, Mumps, & Rubella Vaccine 0.5 ML VIAL SC (10:21)
--- NOTE | 2024-10-03 11:56 | W.PM.OBPNV1 ---
Date of service: 10/03/24 Time of Service: 11:56 Assessment and Plan Assessment and plan (1) Term of male : Status: Acute Assessment and plan: Caring for baby independently. Coccygeal and perineal pain is managed well with oral analgesics. Voiding without difficulty. well. A - stable mother and baby , Post day 2 P - Discharge to home tomorrow. Routine post instructions. [facility] Subjective Subjective Interval history: Baby was evaluated in the nursery for respiratory distress after . Patient comments: No complaints Patient's Mood: good baby status: Doing well (oxygen discontinued and baby rooming in with parents. Receiving antibiotic therapy) [place] feeding status: Exclusively breast feeding Exam Physical Exam Vital signs: Temp Pulse Resp BP Pulse Ox 98.1 F 59 L 12 99/69 L 100 10/03/24 08:30 10/03/24 08:30 10/03/24 08:30 10/03/24 08:30 10/02/24 19:45 Vital Signs Reviewed: Yes Constitutional Constitutional: no acute distress HEENT Exam HEENT Exam: Normal Respiratory Exam Respiratory Exam: Normal Cardiovascular Exam Cardiovascular Exam: Normal Fundal Exam Fundus: Below Umbilicus and Firm Extremities Exam Extremity Exam: Normal Skin Exam Skin Exam: Normal Psychiatric Exam Psychiatric Exam: Normal Results Hemoglobin/Hematocrit: Hgb 10.5 g/dL (11.2-15.7) L D 10/03/24 06:38 Hct 30.2 % (36.0-46.0) L 10/03/24 06:38 Abnormal Lab Findings: Abnormal Labs 10/01/24 10/03/24 11:32 06:38 RBC 3.92 L 3.14 L Hgb 10.5 L D Hct 30.2 L MCV 97 H 96 H MCH 33.4 H
[2024-10-03 22:10] VITALS: BP 125/80; PULSE 54; RESP 14; TEMP 36.5
[2024-10-04] MEDS: Levothyroxine 125 MCG TAB PO (06:08)
[2024-10-04 07:57] VITALS: BP 112/74; PULSE 51; RESP 12; TEMP 36.8
[2024-10-04 08:11] LABS: HCT 34.1 % (36.0-46.0); HGB 11.7 g/dL (11.2-15.7); MCH 33.1 pg (27.0-33.0); MCHC 34.3 % (32.0-36.0); MCV 97 fL (80-95); MPV 9.8 fL (8.0-11.0); Platelet Count 200 10^3/uL (130-400); RBC 3.53 10^6/uL (3.93-5.22); RDW 12.6 % (11.7-14.6); RDW-SD 44.1 fL
[2024-10-04 08:33] LABS: TSH (W/Ref FT4) 2.36 uIU/mL (0.36-3.74)
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
== END 2024-10-04 11:30 | disposition home or self-care (01) | DRG 806 ==
LOC: BCD 10-02 08:18 → OBS 10-02 08:18
PROVIDERS: Advanced Practice Midwife; Admitting Provider Advanced Practice Midwife; PCP Student in an Organized Health Care Education/Training Program; Visit Provider Advanced Practice Midwife
DX: O42.02 Full-term premature rupture of membranes, onset of labor within 24 hours of rupture (principal); O99.354 Diseases of the nervous system complicating childbirth; Z37.0 Single live birth; Z3A.40 40 weeks gestation of pregnancy; O99.284 Endocrine, nutritional and metabolic diseases complicating childbirth; E89.0 Postprocedural hypothyroidism; O70.0 First degree perineal laceration during delivery; O43.193 Other malformation of placenta, third trimester; Z28.39 Other underimmunization status; G43.109 Migraine with aura, not intractable, without status migrainosus
CPT/HCPCS: 36415; 85027; 86850; 86900; 86901; 90707; 59025; 84443; 88307

== ENCOUNTER 2024-11-19 11:56 | Outpatient (CLI) | payer MEDICAID, SELFPAY ==
[2024-11-19 12:00] LABS: TSH (W/Ref FT4) 0.02 uIU/mL (0.36-3.74)
== END 2024-11-19 11:57 | disposition home or self-care (01) ==
LOC: LBO 11:58
PROVIDERS: PCP Student in an Organized Health Care Education/Training Program; Visit Provider Advanced Practice Midwife
DX: Z37.0 Single live birth (principal); Z13.29 Encounter for screening for other suspected endocrine disorder
CPT/HCPCS: 36415; 84439; 84443